=== PATIENT | female | born 1995 | race Caucasian/White ===

== ENCOUNTER → 2017-08-03 | Outpatient (CLI) | payer OTHER ==
--- NOTE | 2017-08-04 07:14 | REP ---
Clinical: Anatomical evaluation -- Twin gestation. Comparison: None available . Findings: Examination demonstrates known diamniotic twin gestation with placenta identified posteriorly and grade I without evidence for placenta previa or abruption. Cervix measures 7.2 cm cm in length and appears closed. Gestational age by LMP at 25 weeks 0 days with estimated date of delivery 11/16/2017. TWIN A: Twin A identified in transverse (head to maternal right) presentation. motion is appreciated. Amniotic fluid volume is дмитрий. Gestational age by current measurements 22 weeks 5 days. FHR equals 133 beats per minute. Estimated weight 488 grams ( <3rd percentile). Anatomical assessment demonstrates normal structures including cranium, cavum, facial features, lungs, four-chamber heart/ventricular outflow tracts, diaphragm, stomach, cord insertion/three-vessel cord, kidneys/bladder, and lower extremities. Limited evaluation of the cord plexus, posterior fossa, right ventricular outflow tracts, spine and upper extremities. ------- TWIN B: Twin B identified in transverse (head to maternal right) presentation. motion is appreciated. Amniotic fluid volume is normal. Gestational age by current measurements 24 weeks 2 days. FHR equals 139 beats per minute. Estimated weight 702 grams ( 30th percentile). Anatomical assessment demonstrates normal structures including cranium, cavum, cerebellum/posterior fossa, facial features, lungs, four-chamber heart/ventricular outflow tracts, diaphragm, stomach, cord insertion/three-vessel cord, kidneys/bladder, spine, and lower extremities. Limited evaluation of the cord plexus and upper extremities. Impression: Diamniotic twin gestation. Discordant growth noted. Anatomical limitations as described above. Signed by Navdeep Beebe MD 08/04/2017 07:05 A
== END ==
LOC: M RAD 14:46
PROVIDERS: ATTEND Obstetrics & Gynecology
DX: Z36 Encounter for antenatal screening of mother (principal)

== ENCOUNTER → 2017-08-07 | Outpatient (CLI) | payer OTHER ==
[2017-08-07 12:27] LABS: MEAN CORPUSCULAR HEMOGLOBIN 30.4 pg (27.0-33.0); MEAN CORPUSCULAR HGB CONC 33.4 g/dl (32.0-36.5); MEAN CORPUSCULAR VOLUME 90.8 fl (80.0-96.0); RED CELL DISTRIBUTION WIDTH 13.9 % (11.5-14.5); WHITE BLOOD COUNT 11.6 10^3/uL (4.0-10.0)
== END ==
LOC: M LAB 10:18
PROVIDERS: ATTEND Obstetrics & Gynecology
DX: O30.042 Twin pregnancy, dichorionic/diamniotic, second trimester (principal)

== ENCOUNTER → 2017-08-17 | Outpatient (CLI) | payer OTHER ==
--- NOTE | 2017-08-17 14:51 | REP ---
Obstetric sonography: Multiple gestation. History: Supervision of followup twins. Placental issue. Findings: Diamniotic twin intrauterine gestation seen. Placenta is posterior grade 2 without evidence of previa or abruption. Closed cervical length is 3.1 cm measured transabdominally. There has been discordant growth of the twins. Twin A is transverse and lie with the head to maternal right. Twin B is transverse in lie with head to the maternal right as well. Amniotic fluid is subjectively normal. The deepest pocket of amniotic fluid surrounding twin A measures 5.9 and that surrounding twin B 4.5 cm. No anomaly is seen. For fetus A the following anatomic structures are identified and felt to be unremarkable: cranium, choroid plexus, cavum, face and profile, lungs, four-chamber heart with left and right ventricular outflow tract views, diaphragm, left-sided stomach, abdominal wall cord insertion, three-vessel umbilical cord, kidneys and bladder, upper and lower extremities. For fetus B the following anatomic structures are identified and felt to be sonographically unremarkable: cranium, choroid plexus, cavum, cerebellum and posterior fossa, face and profile, lungs, diaphragm, left-sided stomach, abdominal wall cord insertion, three-vessel umbilical cord, kidneys and bladder, spine, lower extremities. Biometry chart Fetus A: BPD 6.2 cm = 25 weeks 1 day Head circumference 23.1 cm = 25 weeks 1 day Abdominal circumference 18.2 cm = 23 weeks 0 days Femur length 4.1 cm = 23 weeks 2 days Humeral length 3.8 cm = 23 weeks 3 days HC/AC ratio normal 1.27. Cephalic index normal 0.74. Estimated weight 593, grams 1 pound 4 ounces, less than 3rd percentile. heart rate 156 beats per minute. S/D ratio in the umbilical cord artery by Doppler 4.56. Biometry chart Fetus B BPD 6.5 cm = 26 weeks 1 day Head circumference 24.4 cm = 26 weeks 3 days Abdominal circumference 22.0 cm = 26 weeks 3 days Femur length 4.8 cm = 26 weeks 1 day HC/AC ratio normal 1.11. Cephalic index normal 0.73. Estimated weight 918 grams, 2 pounds 0 ounces, 26th percentile. heart rate 147 beats per minute. S/D ratio in the umbilical cord artery by Doppler 4.56. Impression: Viable twin intrauterine gestation at 27 weeks 0 days by prior sonography. Appropriate interval growth of fetus B. Somewhat less than expected interval growth fetus A. Fetus A less than 3rd percentile for weight, fetus B 26 percentile for weight. Signed by Boone Seaman MD 08/17/2017 04:44 P
== END ==
LOC: M RAD 09:33
PROVIDERS: ATTEND Obstetrics & Gynecology
DX: Z36.2 Encounter for other antenatal screening follow-up (principal)